=== PATIENT | male | born 1985 | race Hispanic/Latino ===

== ENCOUNTER 2018-01-05 23:03 | Emergency (ER) | payer BC ==
[2018-01-05 23:04] VITALS: BMI 27.1
[2018-01-05 23:12] VITALS: RESP 18; O2SAT 100
[2018-01-05] MEDS ORDERED: Sodium Chloride 0.9% 1,000 ML IV STA (23:36)
--- NOTE | 2018-01-05 23:50 | ED PDOC ---
Syncope/Near Syncope/Dizziness Time Seen by Provider: 01/05/18 23:15 Chief Complaint (Nursing): Syncope Chief Complaint (Provider): Syncope History Per: Patient History/Exam Limitations: no limitations Onset/Duration Of Symptoms: Other (just prior to arrival) Current Symptoms Are (Timing): Still Present Additional Complaint(s): 32 y/o male with no significant past medical history presenting for evaluation of witnessed syncopal episode just prior to arrival. Patient states the episode occurred after having a bowel movement. He states he had a normal bowel movement , but felt warm and dizzy. He says he attempted to get up and walk to the kitchen and he remembers collapsing on the floor which was witnessed by a friend. He reports LOC lasting approximately 20 seconds without convulsive activity. He denies any incontinence or tongue bite. He denies any preceding chest pain or difficulty breathing. Patient was here approximately 6 weeks ago for chest pain which had extensive ER workup and was discharged. He states the symptoms resolved and have not since returned, but he has not seen any physician for follow up. He denies any recent illness, fever, or vomiting. Patient is currently complaining of a headache due to striking the back of his head on the floor. PMD: None reported Past Medical History Reviewed: Historical Data, Nursing Documentation, Vital Signs Vital Signs: Last Vital Signs Temp 98.1 F 01/05/18 23:07 Pulse 65 01/05/18 23:07 Resp 18 01/05/18 23:07 BP 158/90 H 01/05/18 23:07 Pulse Ox 100 01/05/18 23:07 - Medical History PMH: No Chronic Diseases - Surgical History Surgical History: Tonsillectomy Other surgeries: compartment syndrome to LEs (years ago) - Family History Family History: States: Hypertension (father with HTN) Denies: [place], CAD (sudden ) - Living Arrangements Living Arrangements: With Family - Social History Current smoker - smoking cessation education provided: No Alcohol: Social (last drink this past weekend) - Home Medications Home Medications: Ambulatory Orders Medication Instructions Recorded Ibuprofen [Motrin] 400 mg PO QID PRN #30 tab 11/11/17 - Allergies Allergies/Adverse Reactions: Allergies Allergy/AdvReac Type Severity Reaction Status Date / Time Sulfa (Sulfonamide Allergy RASH Verified 01/05/18 23:07 Antibiotics) Review of Systems ROS Statement: Except As Marked, All Systems Reviewed And Found Negative Constitutional: Negative for: Fever Cardiovascular: Negative for: Chest Pain Respiratory: Negative for: Shortness of Breath Gastrointestinal: Positive for: Diarrhea. Negative for: Vomiting, Hematochezia Genitourinary Male: Negative for: Incontinence Neurological: Positive for: Headache, Dizziness, Other (syncope). Negative for : Weakness Physical Exam - Reviewed Nursing Documentation Reviewed: Yes Vital Signs Reviewed: Yes - Physical Exam Appears: Positive for: Well, Non-toxic, No Acute Distress Head Exam: Positive for: ATRAUMATIC (no scalp hematoma), NORMAL INSPECTION, NORMOCEPHALIC Skin: Positive for: Normal Color, Warm, Dry. Negative for: Rash Eye Exam: Positive for: Normal appearance (conjunctiva pink), EOMI, PERRL Neck: Positive for: Normal, Painless ROM, Supple Cardiovascular/Chest: Positive for: Regular Rate, Rhythm. Negative for: Murmur Respiratory: Positive for: Normal Breath Sounds. Negative for: Respiratory Distress Gastrointestinal/Abdominal: Positive for: Normal Exam, Soft. Negative for: Tenderness Back: Positive for: Normal Inspection. Negative for: L CVA Tenderness, R CVA Tenderness, Vertebral Tenderness Extremity: Positive for: Normal ROM. Negative for: Pedal Edema, Deformity Neurologic/Psych: Positive for: Alert, Oriented, Other (passed coordination test , some trouble with memory recall). Negative for: Motor/Sensory Deficits - Laboratory Results Result Diagrams: 01/06/18 00:09 01/06/18 00:09 - ECG O2 Sat by Pulse Oximetry: 100 (RA) Pulse Ox Interpretation: Normal Medical Decision Making Medical Decision Makin:35 Plan: -Syncope workup with CT, EKG, labs, and IV fluid. 00:00 -Patient endorsed to Dr. Avalos pending CT and labs. ----- Scribe Attestation: Documented by Maikel Sykes, acting as a scribe for Raheem Juarez III, DO. Provider Scribe Attestation: All medical record entries made by the Fannyibbhaskar were at my direction and personally dictated by me. I have reviewed the chart and agree that the record accurately reflects my personal performance of the history, physical exam, medical decision making, and the department course for this patient. I have also personally directed, reviewed, and agree with the discharge instructions and disposition. Disposition - Clinical Impression Clinical Impression: Syncope - Patient ED Disposition Is Patient to be Admitted: Transfer of Care Counseled Patient/Family Regarding: Studies Performed - Disposition Referrals: [facility] [Outside] Disposition: Transfer of Care Disposition Time: 00:00 Condition: STABLE Instructions: Syncope (Fainting), Vasovagal Response Forms: [employer] (Gambian) Patient Signed Over To: Malcom Avalos Handoff Comments: pending CT and labs
[2018-01-06 00:35] LABS: HEMOGLOBIN 14.9 g/dL (12.0-18.0); MEAN CELL VOLUME 88.1 fl (80.0-94.0); MEAN CORPUSCULAR HEMOGLOBIN 30.9 pg (27.0-31.0); MEAN CORPUSCULAR HGB CONC 35.1 g/dL (33.0-37.0); RBC 4.82 Mil/uL (4.40-5.90); RED CELL DISTRIBUTION WIDTH 12.7 % (11.5-14.5); WHITE BLOOD COUNT 8.2 K/uL (4.8-10.8)
[2018-01-06 00:37] LABS: ALB/GLOB RATIO 1.7 (1.0-2.1); ALBUMIN 4.6 g/dL (3.5-5.0); ALT/SGPT 29 U/L (21-72); AST/SGOT 37 U/L (17-59); BLOOD UREA NITROGEN 11 mg/dl (9-20); CALCIUM 9.5 mg/dL (8.4-10.2); GFR AFRICAN-AMERICAN > 60; GFR NON-AFRICAN AMERICAN > 60
[2018-01-06 00:44] LABS: INR 1.1 (0.9-1.2); PARTIAL THROMBOPLASTIN TIME 26.5 Seconds (25.6-37.1); PROTHROMBIN TIME 11.7 Seconds (9.8-13.1)
[2018-01-06 00:48] LABS: B-TYPE NATRIURETIC PEPTIDE 20.7 pg/ml (0-450)
--- NOTE | 2018-01-06 00:49 | ED PDOC ---
- Laboratory Results Result Diagrams: 01/06/18 00:09 01/06/18 00:09 - ECG O2 Sat by Pulse Oximetry: 100 (RA) Medical Decision Making Medical Decision Makin:00 Patient endorsed to me by Dr. Juarez pending CT and labs. 00:07 EXAM: CT Head Without Intravenous Contrast CLINICAL HISTORY: 32 years old, male; Signs and symptoms; Syncope and collapse; Additional info: R /O ich TECHNIQUE: Axial computed tomography images of the head/brain without intravenous contrast. All CT scans at this facility use at least one of these dose optimization techniques: automated exposure control; mA and/or kV adjustment per patient size (includes targeted exams where dose is matched to clinical indication); or iterative reconstruction. COMPARISON: No relevant prior studies available. FINDINGS: Brain: Minimal atrophy. No intracranial hemorrhage. No mass. Prominent cisterna magna. No definite edema. Ventricles: No hydrocephalus. Bones/joints: No acute fracture. Soft tissues: Unremarkable. Sinuses: No acute sinusitis. Mastoid air cells: No mastoid effusion. Orbits: Unremarkable as visualized. IMPRESSION: 1. No definite acute intracranial abnormality. 2. Incidental/non-acute findings are described above. Thank you for allowing us to participate in the care of your patient. Dictated and Authenticated by: Jesse Maddox MD 01/06/2018 12:07 AM Eastern Time ([place] & [place]) 2AM Patient seen and examined at bedside, results given, patient states he's feeling better except for slight headache (was not given APAP yet). Advised patient strict followup with his PMD (cannot remember name). Advised return precautions and head injury precautions. Patient has normal EKG, normal vitals , was able to walk without syncope or pre-syncopal symptoms. ----- Scribe Attestation: Documented by Maikel Sykes, acting as a scribe for Malcom Avalos MD. Provider Scribe Attestation: All medical record entries made by the Scribe were at my direction and personally dictated by me. I have reviewed the chart and agree that the record accurately reflects my personal performance of the history, physical exam, medical decision making, and the department course for this patient. I have also personally directed, reviewed, and agree with the discharge instructions and disposition. Disposition - Clinical Impression Clinical Impression: Syncope - POA Present On Arrival: None - Disposition Referrals: [facility] [Outside] Disposition: Routine/Home Disposition Time: 02:13 Condition: STABLE Instructions: Vasovagal Response, Syncope (Fainting) Forms: Johanne Pringle (Burundian)
[2018-01-06 01:37] LABS: URINE BILIRUBIN NEGATIVE (NEGATIVE); URINE BLOOD NEGATIVE (NEGATIVE); URINE CLARITY SLIGHTY-CLOUDY (Clear); URINE COLOR YELLOW (YELLOW); URINE GLUCOSE (UA) NEG (Normal); URINE LEUKOCYTE ESTERASE NEG Leu/uL (Negative); URINE PROTEIN NEGATIVE (NEGATIVE); URINE UROBILINOGEN 0.2-1.0 mg/dL (0.2-1.0)
[2018-01-06 07:50] VITALS: BP 124/80; PULSE 75; TEMP 98.4
--- NOTE | 2018-01-06 10:06 | CT ---
Date of service: 01/05/2018 PROCEDURE: CT HEAD WITHOUT CONTRAST. HISTORY: r/o ICH COMPARISON: None available. TECHNIQUE: Axial computed tomography images were obtained through the head/brain without intravenous contrast. Radiation dose: Total exam DLP = 839.14 0 0 mGy-cm. This CT exam was performed using one or more of the following dose reduction techniques: Automated exposure control, adjustment of the mA and/or kV according to patient size, and/or use of iterative reconstruction technique. FINDINGS: HEMORRHAGE: No intracranial hemorrhage. BRAIN: No mass effect or edema. No atrophy or chronic microvascular ischemic changes. VENTRICLES: No obstructive hydrocephalus. Prominent cisterna magna. . CALVARIUM: Unremarkable. PARANASAL SINUSES: Unremarkable as visualized. No significant inflammatory changes. MASTOID AIR CELLS: Unremarkable as visualized. No inflammatory changes. OTHER FINDINGS: None. IMPRESSION: No acute intracranial hemorrhage.
--- NOTE | 2018-01-07 12:13 | CARD ---
APPROVED REPORT Date of service: 01/06/2018 EKG Measurement Heart [id number] <Conclusion> Normal sinus rhythm Normal ECG
== END 2018-01-06 03:20 | disposition home or self-care (01) ==
LOC: H.ER 23:03
DX: R55 Syncope and collapse (principal)
CPT/HCPCS: 70450; 80053; 81003; 82550; 83880; 84484; 85027; 85610; 85730; 93005; 99285; G0480; J7030